=== PATIENT | female | born 1985 | race American Indian/Alaskan Native ===

== ENCOUNTER 2016-06-23 11:42 | Emergency (ER) | payer OTHER ==
[2016-06-23 11:53] VITALS: BMI 34.7
[2016-06-23 11:59] VITALS: PULSE 68; TEMP 99.1
--- NOTE | 2016-06-23 12:48 | RAD ---
PROCEDURE: Left Hand Radiographs. HISTORY: contusion COMPARISON: None available. FINDINGS: BONES: No acute displaced fracture. JOINTS: No dislocation. SOFT TISSUES: Unremarkable. No evidence of radiopaque foreign body. OTHER FINDINGS: None. IMPRESSION: No acute displaced fracture, dislocation, or significant joint effusion identified. If symptoms persist, or if there is continued clinical concern, x-ray follow-up in 7-10 days should be considered.
--- NOTE | 2016-06-23 12:48 | C.PDOC ---
History Of Present Illness 30 y/o female presents to the ED with complains of hand injury. Pt works at a [employer] and states her hand got caught between the door and a cart she was pulling. Pt reports pain to left ulnar aspect of palm with mild swelling. Pt denies weakness, numbness or any other complaints. Time Seen by Provider: 06/23/16 11:56 Chief Complaint (Nursing): Upper Extremity Problem/Injury History Per: Patient History/Exam Limitations: no limitations Onset/Duration Of Symptoms: Hrs Current Symptoms Are (Timing): Still Present Quality: "Pain" Exacerbating Factor(s): Nothing Recent travel outside of the [place]: No Past Medical History Reviewed: Historical Data, Nursing Documentation, Vital Signs Vital Signs: Last Vital Signs Temp 99.1 F 06/23/16 11:53 Pulse 68 06/23/16 11:53 Resp 17 06/23/16 11:53 BP 130/80 06/23/16 11:53 Pulse Ox 99 06/23/16 12:49 - Medical History PMH: Asthma Family History: States: Unknown Family Hx - Social History Hx Alcohol Use: Yes Hx Substance Use: No - Immunization History Hx Tetanus Toxoid Vaccination: No Hx Influenza Vaccination: No Hx Pneumococcal Vaccination: No Review Of Systems Except As Marked, All Systems Reviewed And Found Negative. Constitutional: Negative for: Fever, Chills Musculoskeletal: Positive for: Hand Pain (left) Neurological: Negative for: Weakness, Numbness Physical Exam - Physical Exam Appears: Non-toxic, No Acute Distress Skin: Warm, Dry, No Rash Head: Atraumatic, Normacephalic Extremity: Tenderness (left ulnar aspect of palm, some bony tenderness), Capillary Refill (<2 seconds), No Deformity, Swelling (mild) Pulses: Left Radial: Normal Neurological/Psych: Oriented x3, Normal Motor, Normal Sensation ED Course And Treatment O2 Sat by Pulse Oximetry: 99 (on room air) Pulse Ox Interpretation: Normal Medical Decision Making Medical Decision Making: XR left hand negative for any fractures of dislocations. Disposition Counseled Patient/Family Regarding: Studies Performed, Diagnosis, Need For Followup - Disposition Disposition: HOME/ ROUTINE Disposition Time: 13:26 Condition: STABLE Additional Instructions: Follow up with your doctor as needed Prescriptions: Ibuprofen [Motrin] 600 mg PO TID #15 tab Instructions: RICE Therapy (ED) Forms: General Discharge Instructions, Work Excuse - POA Present On Arrival: None - Clinical Impression Clinical Impression: Contusion - Scribe Statement The provider has reviewed the documentation as recorded by the Randyiboctaviano Chicas Provider Attestation: All medical record entries made by the Randyibe were at my direction and personally dictated by me. I have reviewed the chart and agree that the record accurately reflects my personal performance of the history, physical exam, medical decision making, and the department course for this patient. I have also personally directed, reviewed, and agree with the discharge instructions and disposition.
[2016-06-23 13:46] VITALS: BP 126/78; RESP 18; O2SAT 97
== END 2016-06-23 13:46 | disposition home or self-care (01) ==
LOC: C.ER 11:42
DX: S60.222A Contusion of left hand, initial encounter (principal); W23.0XXA Caught, crushed, jammed, or pinched between moving objects, initial encounter; Y92.89 Other specified places as the place of occurrence of the external cause; Y99.0 Civilian activity done for income or pay